=== PATIENT | female | born 1950 | race Hispanic/Latino ===

== ENCOUNTER → 2018-07-03 | Day surgery (SDC) | payer MEDICARE ==
[2018-07-02 09:49] LABS: BASOPHILS # (AUTO) 0.1 (0.0-0.1); BASOPHILS % 0.5 % (0.0-1.0); EOSINOPHILS # (AUTO) 0.5 (0.0-0.4); EOSINOPHILS % 4.6 % (0.0-6.0); HEMATOCRIT 36.2 % (34.2-44.1); HEMOGLOBIN 11.7 g/dL (12.0-16.0); LYMPHOCYTES # (AUTO) 4.8 (1.0-3.2); LYMPHOCYTES % 46.4 % (18.0-39.1); MEAN CORPUSCULAR HEMOGLOBIN 28.7 pg (28-32); MEAN CORPUSCULAR HGB CONC 32.3 g/dL (31-35); MEAN CORPUSCULAR VOLUME 88.7 fL (81-99); MONOCYTES # (AUTO) 0.8 (0.2-0.8); MONOCYTES % 7.3 % (4.4-11.3); NEUTROPHILS # (AUTO) 4.2 (2.1-6.9); NEUTROPHILS % 40.9 % (38.7-80.0); PLATELET COUNT 309 x10e3/uL (140-360); RED BLOOD COUNT 4.08 x10e6/uL (3.6-5.1)
[2018-07-02 10:04] LABS: ANION GAP 16.2 mmol/L (8-16); CALCIUM 10.2 mg/dL (8.4-10.2); CREATININE, SERUM 0.96 mg/dL (0.57-1.11); POTASSIUM 4.2 mmol/L (3.5-5.1)
--- NOTE | 2018-07-02 11:46 | Diagnostic Imaging Report ---
PROCEDURE: X-RAY CHEST, TWO VIEWS COMPARISON: None. INDICATIONS: PREOP BILATERAL CARPAL TUNNEL SX TOMORROW FINDINGS: LUNGS: No consolidations or edema. Vague nodular density overlies the right lower lung field which is likely overlapping shadows but a pulmonary nodule cannot be excluded. PLEURA: No effusions or pneumothorax. HEART \T\ MEDIASTINUM: The heart is within normal size-limits. There is calcification within the aorta. BONES \T\ SOFT TISSUES: No acute findings. Clips in the right upper quadrant from a previous cholecystectomy. CONCLUSION: 1. No acute thoracic abnormality. 2. Vague right lower lobe pulmonary nodular density. Tye Trimble D.O. Dictated by: Tye Trimble D.O. on 07/02/2018 at 10:32 Electronically approved by: Tye Trimble D.O. on 07/02/2018 at 10:32
[~2018-07-03] MED LIST: ACETAMINOPHEN/CODEINE 300MG - 30MG TAB ONE; AMITIZA24 MCG PO; ATORVASTATIN CA20 MG PO; CEFAZOLIN SOD 1 GM VIAL ONE; CLOPIDOGREL75 MG PO; DESFLURANE 240 ML BTL INH ONE; DICYCLOMINE HCL20 MG PO; DIOVAN80 MG PO; FENTANYL CITRATE/PF 100MCG/2 ML INJ ONE; IBUPROFEN200 MG PO; KETOROLAC TROMETHAMINE 30 MG/ML VIAL ONE; LIDOCAINE HCL 2% LOCAL INJ 5 ML SDV VIAL INJ ONE; METFORMIN HCL500 MG PO; METOCLOPRAM5 MG/5 ML; METOPROLOL TART25 MG PO; MIDAZOLAM HCL 2 MG/2 ML VIAL ONE; NITROGLYCERIN0.4 MG SL; ONDANSETRON HCL INJ 2 MG/ML VIAL ONE; OTEZLA; PIOGLITAZONE HC45 MG PO; PROPOFOL IV EMULSION 10 MG/ML 20 ML VIAL ONE; SUCRALFATE1 GM PO
[2018-07-03 08:35] VITALS: BP 118/61
--- NOTE | 2018-07-03 08:58 | Operative Report ---
DATE OF PROCEDURE: July 03, 2018 PIPE BENDING MACHINE OPERATOR: Jeff Bird PA-C The patient was brought to the operating room for induction of anesthesia. Throughout this case, my PA's assistance was necessary for retraction of soft tissue and positioning of the extremity. This allows for efficient and technically successful execution of the operation and is considered medically necessary. PREOPERATIVE DIAGNOSIS: Right carpal tunnel syndrome. POSTOPERATIVE DIAGNOSIS: Right carpal tunnel syndrome. PROCEDURE: Right endoscopic carpal tunnel release. INDICATIONS: The patient is a 68-year-old lady who has clinic signs and symptoms consistent with right carpal tunnel syndrome. She has failed conservative management and would like to proceed with surgical intervention. The risks and benefits have been explained. She states she understands and wishes to proceed. PROCEDURE: The patient was brought to the operating room. She was placed under general anesthetic. Prophylactic antibiotics were given in the holding area. The right upper extremity was prepped and draped in a sterile manner. A well-padded tourniquet was placed on the upper arm and inflated to 250 mmHg. An operative time out was performed. A 1-cm incision was made over the flexion crease of the wrist. The palmaris longus was retracted to the radial side of the wound. The flexor retinaculum was elevated and incised with a pair of sharp tenotomy scissors. An elevator was used to tease the tenosynovium off the undersurface of the transverse carpal ligament. Dilators were placed, and the hook of the hamate was palpated. The MicroAire endoscope was then placed into the carpal tunnel. The undersurface of the ligament was cleanly visualized without evidence of soft tissue interposition. The knife was deployed, and the ligament was cut from distal to proximal. Full-thickness cut was noted. The proximal retinaculum was then incised under direct visualization using a pair of blunt Metzenbaum scissors. The wound was irrigated and closed with 2 interrupted 4-0 nylon stitches. A sterile bandage was applied, and the patient was extubated. The patient was transferred to the recovery room in stable condition. Blood loss was less than 5 mL, and at the end of the procedure needle and sponge counts were correct. Job#: [id number]
== END | disposition home or self-care (01) ==
LOC: OR 05:14
PROVIDERS: ATTEND Specialist
DX: G56.01 Carpal tunnel syndrome, right upper limb (principal); I10 Essential (primary) hypertension; E11.9 Type 2 diabetes mellitus without complications; K21.9 Gastro-esophageal reflux disease without esophagitis; E78.00 Pure hypercholesterolemia, unspecified; Z01.810 Encounter for preprocedural cardiovascular examination; Z01.812 Encounter for preprocedural laboratory examination; Z01.818 Encounter for other preprocedural examination; Z79.02 Long term (current) use of antithrombotics/antiplatelets; Z79.84 Long term (current) use of oral hypoglycemic drugs; Z86.73 Personal history of transient ischemic attack (TIA), and cerebral infarction without residual deficits
CPT/HCPCS: 29848; 36415; 71046; 80048; 85025; 93005; J0690; J1885; J2001; J2250; J2405

== ENCOUNTER → 2018-07-30 | Day surgery (SDC) | payer MEDICARE ==
[~2018-07-30] MED LIST changes: -ACETAMINOPHEN/CODEINE 300MG - 30MG TAB ONE; +ASPIR 8181 MG PO; -DESFLURANE 240 ML BTL INH ONE; +DEXAMETHASONE SOD PHOS INJ 4 MG/ML VIAL ONE; +PHENYLEPHRINE HCL 1% 10 MG/ML VIAL ONE; +SEVOFLURANE INHAL SOLN 250 ML PEN BTL ONE
[2018-07-30 12:40] VITALS: BP 123/58
--- NOTE | 2018-07-31 07:56 | Operative Report ---
DATE OF PROCEDURE: July 30, 2018 [place]ERA SUPERVISOR: Jeff Bird PA-C PREOPERATIVE DIAGNOSIS: Left carpal tunnel syndrome. POSTOPERATIVE DIAGNOSIS: Left carpal tunnel syndrome. PROCEDURE: Left endoscopic carpal tunnel release. INDICATIONS: The patient is a 68-year-old lady, who has clinic signs and symptoms consistent with left carpal tunnel syndrome. She has failed conservative management and would like to proceed with surgical intervention. The risks and benefits of an endoscopic versus open carpal tunnel release have been explained. She states she understands and wishes to proceed. PROCEDURE: The patient was brought to the operating room. was placed under general anesthetic. Prophylactic antibiotics were given in the holding area. The upper extremity was prepped and draped in a sterile manner. A well-padded tourniquet was placed on the upper arm and inflated to 250 mmHg. An operative time out was performed. A 1-cm incision was made over the flexion crease of the wrist. The palmaris longus was retracted to the radial side of the wound. The flexor retinaculum was elevated and incised with a pair of sharp tenotomy scissors. An elevator was used to tease the tenosynovium off the undersurface of the transverse carpal ligament. Dilators were placed, and the hook of the hamate was palpated. The MicroAire endoscope was then placed into the carpal tunnel. The undersurface of the ligament was cleanly visualized without evidence of soft tissue interposition. The knife was deployed, and the ligament was cut from distal to proximal. Full-thickness cut was noted. The proximal retinaculum was then incised under direct visualization using a pair of blunt Metzenbaum scissors. The wound was irrigated and closed with 2 interrupted 4-0 nylon stitches. A sterile bandage was applied, and the patient was extubated. The patient was transferred to the recovery room in stable condition. Blood loss was less than 5 mL, and at the end of the procedure needle and sponge counts were correct. Job#: [id number] [id number]
== END | disposition home or self-care (01) ==
LOC: OR 07:41
PROVIDERS: ATTEND Specialist
DX: G56.02 Carpal tunnel syndrome, left upper limb (principal); E11.9 Type 2 diabetes mellitus without complications; I10 Essential (primary) hypertension; E78.00 Pure hypercholesterolemia, unspecified; Z79.82 Long term (current) use of aspirin; Z79.02 Long term (current) use of antithrombotics/antiplatelets; Z79.84 Long term (current) use of oral hypoglycemic drugs
CPT/HCPCS: 29848; 36415; 82948; J0690; J1100; J1885; J2001; J2250; J2370; J2405

== ENCOUNTER → 2018-08-17 | Outpatient (CLI) | payer MEDICARE ==
[~2018-08-17] MED LIST changes: -CEFAZOLIN SOD 1 GM VIAL ONE; -DEXAMETHASONE SOD PHOS INJ 4 MG/ML VIAL ONE; -FENTANYL CITRATE/PF 100MCG/2 ML INJ ONE; -KETOROLAC TROMETHAMINE 30 MG/ML VIAL ONE; -LIDOCAINE HCL 2% LOCAL INJ 5 ML SDV VIAL INJ ONE; -MIDAZOLAM HCL 2 MG/2 ML VIAL ONE; -ONDANSETRON HCL INJ 2 MG/ML VIAL ONE; -PHENYLEPHRINE HCL 1% 10 MG/ML VIAL ONE; -PROPOFOL IV EMULSION 10 MG/ML 20 ML VIAL ONE; -SEVOFLURANE INHAL SOLN 250 ML PEN BTL ONE
--- NOTE | 2018-08-17 12:20 | Diagnostic Imaging Report ---
Exam: Bone mineral density study (DEXA). History: Osteopenia. Comparison: None Evaluation of the left hip and lumbar spine was performed utilizing DEXA Hologic bone densitometer. The study is technically adequate. FINDINGS: Left hip total bone mineral density: 0.963 gm/cm2, T-score is 0.0, Z-score is 1.2. Left hip femoral neck bone mineral density: 0.808 gm/cm2, T-score is -0.6, Z-score is 1.0. Percentage change since previous: N/A Lumbar spine total bone mineral density: 1.022 gm/cm2, T-score is -0.2, Z-score is 1.6. Percentage change since previous: N/A IMPRESSION: 1. Normal bone mineral density. Fracture risk is not increased. 10 -year fracture risk per WHO Fracture Risk Assessment Tool (FRAX): Not reported due to all T-scores at or above -1.0. Medical evaluation for secondary causes of low bone bone mineral density may be appropriate. Correlate clinically for the necessity and timing of the next bone mineral density study. Signed by: Dr. Hal Upton MD on 08/17/2018 12:16 PM
== END ==
LOC: MAMMO 09:04
PROVIDERS: ATTEND Obstetrics & Gynecology Obstetrics
DX: Z12.31 Encounter for screening mammogram for malignant neoplasm of breast (principal); Z13.820 Encounter for screening for osteoporosis
CPT/HCPCS: 77067; 77080

== ENCOUNTER → 2018-11-27 | Day surgery (SDC) | payer MEDICARE ==
[2018-11-26 10:07] LABS: BASOPHILS # (AUTO) 0.1 (0.0-0.1); BASOPHILS % 0.5 % (0.0-1.0); EOSINOPHILS # (AUTO) 0.4 (0.0-0.4); EOSINOPHILS % 3.9 % (0.0-6.0); HEMATOCRIT 34.9 % (34.2-44.1); LYMPHOCYTES # (AUTO) 4.9 (1.0-3.2); LYMPHOCYTES % 49.2 % (18.0-39.1); MEAN CORPUSCULAR HEMOGLOBIN 28.5 pg (28-32); MEAN CORPUSCULAR HGB CONC 31.5 g/dL (31-35); MEAN CORPUSCULAR VOLUME 90.4 fL (81-99); MONOCYTES # (AUTO) 0.8 (0.2-0.8); MONOCYTES % 7.9 % (4.4-11.3); NEUTROPHILS # (AUTO) 3.8 (2.1-6.9); NEUTROPHILS % 38.1 % (38.7-80.0); PLATELET COUNT 307 x10e3/uL (140-360); RED BLOOD COUNT 3.86 x10e6/uL (3.6-5.1); RED CELL DISTRIBUTION WIDTH 13.2 % (11.7-14.4)
[2018-11-26 10:24] LABS: ANION GAP 13.1 mmol/L (8-16); CALCIUM 9.6 mg/dL (8.4-10.2); CREATININE, SERUM 0.96 mg/dL (0.57-1.11); POTASSIUM 4.1 mmol/L (3.5-5.1)
--- NOTE | 2018-11-26 11:17 | Diagnostic Imaging Report ---
Frontal and lateral views of the chest. HISTORY: Preop, shoulder surgery, rotator cuff tear COMPARISON: None available. DISCUSSION: Soft tissue attenuation partially limits sensitivity of the exam. Lungs: Low lung volumes result in bibasilar vascular crowding, accentuation of the pulmonary interstitial markings, central pulmonary vasculature, and the cardiac silhouette. Allowing for these limitations, the findings are as follows: Questionable 9 mm right lower lung nodular density. No evidence of a consolidative pneumonia or pulmonary alveolar edema. Pleura: No pleural effusion or pneumothorax. Heart and mediastinum: The cardiomediastinal silhouette appears unremarkable. Atherosclerotic vascular calcifications at the aortic arch. Bones: Mild to moderate multilevel degenerative changes of the visualized thoracolumbar spine. Other: Metallic clips in the right upper quadrant of the abdomen are compatible with prior cholecystectomy. IMPRESSION: 1. No acute radiographic abnormality. 2. Questionable 9 mm right pulmonary nodule, differential considerations include a pulmonary nodule, bone island within the right fifth rib, and a pseudonodule secondary to superimposed densities. Recommend a follow-up CT of the chest without contrast for further evaluation. Discussed with Cindy Nance's M.A. (Dr. Nance was in surgery) via phone on November 26, 2017 at 1110, who states she well relate the findings and recommendation to Dr. Nance. Signed by: Dr. Сергей Mccoy D.O., M.M.M. on 11/26/2018 11:14 AM
[~2018-11-27] MED LIST changes: +BUPIVACAINE HCL 0.5% INJ 30 ML VIAL INJ ONE; +CEFAZOLIN SOD 1 GM/D5W 50ML 50 ML IV ONE; +DEPO-MEDRO80 MG/1 ML IV; +DEXAMETHASONE SOD PHOS INJ 4 MG/ML VIAL ONE; +DEXILANT60 MG; +EPINEPHRINE HCL INJ 1 MG/ML AMP ONE; +FENTANYL CITRATE/PF 100MCG/2 ML INJ ONE; +GLYCOPYRROLATE INJ 1MG/ 5 ML SYR ONE; +ISONIAZID300 MG PO; +KETOROLAC TROMETHAMINE 30 MG/ML VIAL ONE; +LIDOCAINE HCL 2% LOCAL INJ 5 ML SDV VIAL INJ ONE; +MIDAZOLAM HCL 2 MG/2 ML VIAL ONE; +NEOSTIGMINE 5 MG/5ML SYR ONE; +ONDANSETRON HCL INJ 2 MG/ML VIAL ONE; +PROPOFOL IV EMULSION 10 MG/ML 20 ML VIAL ONE; +RISPERIDONE0.5 MG PO; +ROCURONIUM BROMIDE 10 MG/ML 5ML VIAL ONE; +SEVOFLURANE INHAL SOLN 250 ML PEN BTL ONE; +VITAMIN B-650 MG
[2018-11-27 12:30] VITALS: BP 146/70
--- NOTE | 2018-11-27 16:28 | Operative Report ---
DATE OF PROCEDURE: November 27, 2018 TOPLINE BEADING MACHINE TENDER: Jeff Bird PA-C The patient was brought to the operating room for induction of anesthesia. Throughout this case, my PA's assistance was necessary for retraction of soft tissue and positioning of the extremity. This allows for efficient and technically successful execution of the operation and is considered medically necessary. PREOPERATIVE DIAGNOSIS: Left shoulder rotator cuff tear. POSTOPERATIVE DIAGNOSIS: Left shoulder rotator cuff tear. PROCEDURE: Left shoulder arthroscopy, subacromial decompression, rotator cuff repair. INDICATIONS: The patient is a 68-year-old lady who has a long history of problems in her left shoulder. She is no longer responding to conservative management and would like to proceed with definitive intervention. Clinic exam and MRI findings are consistent with a rotator cuff tear. The risks and benefits and lengthy recovery of a rotator cuff repair have been explained. She states she understands and wishes to proceed. DESCRIPTION OF PROCEDURE: The patient was brought to the operating room and placed under general anesthetic. She received a regional block and prophylactic antibiotics in the holding area. Her left upper extremity was prepped and draped in a sterile manner. She was in the beach-chair position on the shoulder table. A preoperative time out was performed. A posterior arthroscopy portal was established. The shoulder was insufflated with sterile saline and systematically inspected. She was noted to have some degenerative fraying of the labrum. There was a full-thickness rotator cuff tear with calcific degeneration of the tendon. A lateral working portal was established. An Electroblade shaver was introduced into the shoulder joint. The articular surface of the rotator cuff was debrided back to healthy tissue. The degenerative fraying of the labrum was debrided back to healthy tissue. The biceps anchor and biceps tendon were in good shape. The subscapularis was in good shape. The greater tuberosity was gently decorticated. The glenohumeral surfaces were inspected and noted to be well preserved. The scope was placed into the subacromial space. An aggressive subacromial bursectomy and bone decompression were performed. The bursal surface of the rotator cuff was debrided back to healthy tissue. An Arthrex SpeedBridge double row construct of rotator cuff repair system was used. Initial police pilot hole was initially placed in the greater tuberosity correlating with the anterior supraspinatus. An Arthrex Scorpion suture passer was used to pass the FiberTape stitches through healthy portions of the rotator cuff. A police pilot hole was then placed into the posterior aspect of the greater tuberosity. This bone was suboptimal quality. The suture anchor was seated but could easily be pulled out. I elected to use the anterior suture anchor alone with diverging FiberTape stitches. These were passed... DICTATION STOPPED AT THIS POINT. Job#: [id number]
== END | disposition home or self-care (01) ==
LOC: OR 06:40
PROVIDERS: ATTEND Specialist
DX: S46.022A Laceration of muscle(s) and tendon(s) of the rotator cuff of left shoulder, initial encounter (principal); M75.32 Calcific tendinitis of left shoulder; M75.02 Adhesive capsulitis of left shoulder; E11.9 Type 2 diabetes mellitus without complications; E78.00 Pure hypercholesterolemia, unspecified; I10 Essential (primary) hypertension; X58.XXXA Exposure to other specified factors, initial encounter; Z01.810 Encounter for preprocedural cardiovascular examination; Z01.812 Encounter for preprocedural laboratory examination; Z01.818 Encounter for other preprocedural examination; Z79.02 Long term (current) use of antithrombotics/antiplatelets; Z79.84 Long term (current) use of oral hypoglycemic drugs; Z79.82 Long term (current) use of aspirin; Z86.73 Personal history of transient ischemic attack (TIA), and cerebral infarction without residual deficits
CPT/HCPCS: 29827; 36415 ×2; 71046; 80048; 82948; 85002; 85025; 93005; C1713; J0171; J0690; J1100; J1885; J2001; J2250; J2405; J2704; J3490

== ENCOUNTER 2019-05-31 17:49 | Emergency (ER) | payer MEDICARE ==
[~2019-05-31] VITALS: Ht 162.6 cm; Wt 63.5 kg
[~2019-05-31 17:49] MED LIST changes: -BUPIVACAINE HCL 0.5% INJ 30 ML VIAL INJ ONE; -CEFAZOLIN SOD 1 GM/D5W 50ML 50 ML IV ONE; -DEXAMETHASONE SOD PHOS INJ 4 MG/ML VIAL ONE; -EPINEPHRINE HCL INJ 1 MG/ML AMP ONE; -FENTANYL CITRATE/PF 100MCG/2 ML INJ ONE; -GLYCOPYRROLATE INJ 1MG/ 5 ML SYR ONE; -KETOROLAC TROMETHAMINE 30 MG/ML VIAL ONE; -LIDOCAINE HCL 2% LOCAL INJ 5 ML SDV VIAL INJ ONE; -MIDAZOLAM HCL 2 MG/2 ML VIAL ONE; -NEOSTIGMINE 5 MG/5ML SYR ONE; -ONDANSETRON HCL INJ 2 MG/ML VIAL ONE; -PROPOFOL IV EMULSION 10 MG/ML 20 ML VIAL ONE; -ROCURONIUM BROMIDE 10 MG/ML 5ML VIAL ONE; -SEVOFLURANE INHAL SOLN 250 ML PEN BTL ONE
[2019-05-31 19:27] LABS: BILIRUBIN,URINE NEGATIVE (NEGATIVE); CLARITY,URINE SL CLOUDY (CLEAR); COLOR,URINE YELLOW (YELLOW); KETONES,URINE NEGATIVE (NEGATIVE); LEUKOCYTE ESTERASE ,URINE TRACE (NEGATIVE); NITRITE,URINE NEGATIVE (NEGATIVE); PROTEIN,URINE DIPSTICK 1+ (NEGATIVE); URINE UROBILINOGEN 0.2 mg/dL (0.2 - 1)
[2019-05-31 19:43] LABS: BACTERIA,URINE MODERATE /HPF; EPITHELIAL CELLS,URINE FEW /LPF; HYALINE CASTS 0-1 (0-1); RBC,URINE 0-5 /HPF (0-5)
[2019-05-31] MEDS: LIDOCAINE VISC 2% SOLN 15 ML UDC PO NR (20:27)
[2019-05-31] MEDS: ONDANSETRON HCL INJ 2MG/ML 2ML 2 MG/ML VIAL IV NR (20:27)
[2019-05-31] MEDS: MAGNESIUM/ALUMINUM/SIMETHICONE 30 ML UDC PO NR (20:27)
[2019-05-31] MEDS: BELLADONNA ALK/PHENOBARBITAL 5 ML UDC PO SCH (20:27)
[2019-05-31 21:12] LABS: ALBUMIN 3.7 g/dL (3.5-5.0); ANION GAP 15.8 mmol/L (8-16); CALCIUM 9.9 mg/dL (8.4-10.2); CREATININE, SERUM 0.93 mg/dL (0.57-1.11); POTASSIUM 3.8 mmol/L (3.5-5.1)
[2019-05-31 21:18] LABS: CREATINE KINASE MB 0.5 ng/mL (0-5.0)
[2019-05-31 21:27] LABS: BASOPHILS # (AUTO) 0.1 (0.0-0.1); BASOPHILS % 0.6 % (0.0-1.0); EOSINOPHILS # (AUTO) 0.1 (0.0-0.4); EOSINOPHILS % 1.5 % (0.0-6.0); HEMATOCRIT 31.6 % (34.2-44.1); HEMOGLOBIN 10.5 g/dL (12.0-16.0); LYMPHOCYTES # (AUTO) 2.5 (1.0-3.2); LYMPHOCYTES % 26.2 % (18.0-39.1); MEAN CORPUSCULAR HEMOGLOBIN 28.3 pg (28-32); MEAN CORPUSCULAR HGB CONC 33.2 g/dL (31-35); MEAN CORPUSCULAR VOLUME 85.2 fL (81-99); MONOCYTES # (AUTO) 0.7 (0.2-0.8); MONOCYTES % 7.4 % (4.4-11.3); NEUTROPHILS # (AUTO) 6.2 (2.1-6.9); NEUTROPHILS % 63.9 % (38.7-80.0); PLATELET COUNT 359 x10e3/uL (140-360); RED BLOOD COUNT 3.71 x10e6/uL (3.6-5.1); RED CELL DISTRIBUTION WIDTH 14.3 % (11.7-14.4)
[2019-05-31 21:38] LABS: INR 1.07; PROTHROMBIN TIME 14.4 seconds (11.9-14.5)
[2019-05-31 21:39] LABS: PARTIAL THROMBOPLASTIN TIME 34.6 seconds (23.8-35.5)
[2019-05-31] MEDS ORDERED: SODIUM CHLORIDE 0.9% 50ML 50 ML ONE (22:16)
[2019-05-31] MEDS ORDERED: IOPAMIDOL 370 MG/ML 200 ML INFUS..BTL INJ ONE (22:17)
--- NOTE | 2019-05-31 22:33 | Diagnostic Imaging Report ---
EXAM: CT of the abdomen and pelvis WITH contrast HISTORY: Epigastric pain, nausea and vomiting, history of cholecystectomy COMPARISON: None available. TECHNIQUE: The abdomen and pelvis were scanned utilizing a multidetector helical scanner. Coronal and sagittal reformats are provided. PROTOCOL: Routine IV CONTRAST: 100 cc of Isovue-370. ORAL CONTRAST: Water RADIATION DOSE: Total DLP: 299.25 mGy*cm Estimated effective dose: (DLP x 0.015 x size factor) Dose modulation, iterative reconstruction, and/or weight based adjustment of the mA/kV was utilized to reduce the radiation dose to as low as reasonably achievable. COMPLICATIONS: None FINDINGS: LOWER THORAX: Seen only on the axial images, a 1.2 x 0.7 cm right middle lobe nodule (series 2 image 3). HEPATOBILIARY: No mass. No biliary dilation. Metallic clips in the right upper quadrant of the abdomen are compatible with prior cholecystectomy. SPLEEN: No splenomegaly. PANCREAS: No focal masses or ductal dilatation. ADRENALS: No discrete adrenal nodule. KIDNEYS/URETERS: No hydronephrosis or definite solid mass lesions. Three nonobstructing left renal calculi, the largest near the inferior pole measures up to 6 mm. PELVIC ORGANS/BLADDER: The uterus is anteflexed. The urinary bladder is partially decompressed. GI TRACT: No dilation or wall thickening identified. Scattered colonic diverticuli, without evidence of acute diverticulitis. The appendix is normal. PERITONEUM / RETROPERITONEUM: No free air or fluid. LYMPH NODES: No pathologically enlarged lymph node. VESSELS: Diffuse scattered atherosclerotic vascular calcifications. BONES and JOINTS: Diffusely decreased mineralization of the osseous structures limits bone detail. A 1.2 cm mixed lucent and sclerotic focus within the L5 vertebral body with coarse trabeculations and intrinsic fat density, most likely an incidental vertebral body hemangioma. SOFT TISSUES: Small fat-containing umbilical hernia, without associated inflammatory changes to suggest definite compromise. Diffuse muscle atrophy. IMPRESSION: 1. Three nonobstructing left renal calculi, measuring up to 6 mm. 2. An indeterminant 1.2 cm right lung base nodule. Recommend a follow-up CT of the chest without contrast in 3 months for surveillance or PET/CT for more definitive characterization. 3. Colonic diverticulosis. 4. Small fat-containing umbilical hernia, without evidence of associated vascular compromise. Signed by: Dr. Сергей Mccoy D.O., M.M.M. on 05/31/2019 10:29 PM
[2019-05-31 23:42] VITALS: BP 145/75
== END 2019-06-01 01:10 | disposition home or self-care (01) ==
LOC: ER 17:49
DX: N39.0 Urinary tract infection, site not specified (principal); R10.13 Epigastric pain; E11.9 Type 2 diabetes mellitus without complications; Z87.891 Personal history of nicotine dependence; Z79.84 Long term (current) use of oral hypoglycemic drugs; Z79.02 Long term (current) use of antithrombotics/antiplatelets; Z79.82 Long term (current) use of aspirin
CPT/HCPCS: 36415; 74177; 80053; 81001; 82550; 82553; 83605; 83690; 84484; 85025; 85610; 85730; 87086; 93005; 99284; J2405; Q9967

== ENCOUNTER 2019-06-05 11:58 | Emergency (ER) | payer MEDICARE ==
[~2019-06-05] VITALS: Ht 162.6 cm; Wt 63.5 kg
[2019-06-05] MEDS ORDERED: ONDANSETRON HCL 4 MG ORAL DISINTEGRATING TAB PO ONE (13:00)
[2019-06-05] MEDS ORDERED: ONDANSETRON HCL 4 MG ORAL DISINTEGRATING TAB ONE (13:03)
== END 2019-06-05 12:57 | disposition home or self-care (01) ==
LOC: ER 11:58
DX: Z76.0 Encounter for issue of repeat prescription (principal); R10.13 Epigastric pain
CPT/HCPCS: 99282; Q0162

== ENCOUNTER → 2019-09-10 | Outpatient (CLI) | payer MEDICARE | LOC: MAMMO 10:43 | PROVIDERS: ATTEND Obstetrics & Gynecology Obstetrics | DX: Z12.31 Encounter for screening mammogram for malignant neoplasm of breast (principal) | CPT/HCPCS: 77067 ==

== ENCOUNTER → 2019-09-20 | Outpatient (CLI) | payer MEDICARE | LOC: MAMMO 10:24 | PROVIDERS: ATTEND Obstetrics & Gynecology Obstetrics | DX: N64.89 Other specified disorders of breast (principal) ==

== ENCOUNTER 2021-02-22 12:34 | Observation (INO) | payer MEDICARE ==
[~2021-02-22] VITALS: Ht 162.6 cm; Wt 63.5 kg
[2021-02-22] MEDS ORDERED: ONDANSETRON HCL INJ 2MG/ML 2ML 2 MG/ML VIAL IV STA (12:59)
[2021-02-22] MEDS ORDERED: SODIUM CHLORIDE 0.9% 1000ML 1,000 ML IV STA ×2 (12:59→19:18)
[2021-02-22] MEDS ORDERED: MORPHINE SULFATE INJ 2 MG/ML SYR IV STA (12:59)
[2021-02-22] MEDS ORDERED: PANTOPRAZOLE 40 MG 10ML VIAL IV STA ×2 (12:59→19:22)
[2021-02-22 13:38] LABS: BASOPHILS # (AUTO) 0.1 (0.0-0.1); BASOPHILS % 0.7 % (0.0-1.0); EOSINOPHILS # (AUTO) 0.3 (0.0-0.4); EOSINOPHILS % 2.8 % (0.0-6.0); HEMATOCRIT 37.3 % (34.2-44.1); LYMPHOCYTES # (AUTO) 2.9 (1.0-3.2); LYMPHOCYTES % 31.8 % (18.0-39.1); MEAN CORPUSCULAR HEMOGLOBIN 30.1 pg (28-32); MEAN CORPUSCULAR HGB CONC 32.2 g/dL (31-35); MEAN CORPUSCULAR VOLUME 93.5 fL (81-99); MONOCYTES # (AUTO) 0.8 (0.2-0.8); MONOCYTES % 8.4 % (4.4-11.3); NEUTROPHILS # (AUTO) 5.1 (2.1-6.9); PLATELET COUNT 300 x10e3/uL (140-360); RED BLOOD COUNT 3.99 x10e6/uL (3.6-5.1); RED CELL DISTRIBUTION WIDTH 13.5 % (11.7-14.4)
[2021-02-22 14:19] LABS: ALBUMIN/GLOBULIN RATIO 0.9 (0.8-2.0); ANION GAP 16.7 mmol/L (8-16); CALCIUM 10.1 mg/dL (8.4-10.2); CREATININE, SERUM 1.09 mg/dL (0.57-1.11); INR 0.87; MAGNESIUM 1.7 MG/DL (1.3-2.1); PROTHROMBIN TIME 12.4 seconds (11.9-14.5)
[2021-02-22 14:20] LABS: CLARITY,URINE SL CLOUDY (CLEAR); COLOR,URINE YELLOW (YELLOW); KETONES,URINE NEGATIVE (NEGATIVE); LEUKOCYTE ESTERASE ,URINE SMALL (NEGATIVE); NITRITE,URINE NEGATIVE (NEGATIVE); PROTEIN,URINE DIPSTICK TRACE (NEGATIVE); URINE UROBILINOGEN 0.2 mg/dL (0.2 - 1)
[2021-02-22 14:22] LABS: POTASSIUM 5.7 mmol/L (3.5-5.1)
[2021-02-22 14:27] LABS: BACTERIA,URINE MANY /HPF
[2021-02-22] MEDS ORDERED: SODIUM CHLORIDE 0.9% 50ML 50 ML ONE (15:24)
[2021-02-22] MEDS ORDERED: IOPAMIDOL 370 MG/ML 200 ML INFUS..BTL INJ ONE (15:25)
[2021-02-22 16:58] LABS: ANION GAP 14.4 mmol/L (8-16); BLOOD UREA NITROGEN 19 mg/dL (7-26); BUN/CREATININE RATIO 21 (6-25); CALCIUM 9.1 mg/dL (8.4-10.2); CARBON DIOXIDE 19 mmol/L (22-29); CHLORIDE 108 mmol/L (98-107); CREATININE, SERUM 0.92 mg/dL (0.57-1.11); EST GLOMERULAR FILTRATION RATE > 60 ML/MIN (60-); GLUCOSE 90 mg/dL (74-118); SODIUM 135 mmol/L (136-145)
[2021-02-22 17:00] LABS: POTASSIUM 6.4 mmol/L (3.5-5.1)
[2021-02-22 18:46] LABS: ANION GAP 13.5 mmol/L (8-16); CALCIUM 9.5 mg/dL (8.4-10.2); CREATININE, SERUM 0.97 mg/dL (0.57-1.11)
[2021-02-22 18:47] LABS: POTASSIUM 6.5 mmol/L (3.5-5.1)
[2021-02-22] MEDS ORDERED: DEXTROSE 50% SYRINGE 50 ML IV STA (18:57)
[2021-02-22] MEDS ORDERED: SODIUM BICARBONATE 8.4% INJ 50 ML SYR IV STA (18:57)
[2021-02-22] MEDS ORDERED: SOD POLYSTYRENE SULFONATE SUSP 15 GM/60 ML BTL PO ONE (19:00)
[2021-02-22] MEDS ORDERED: INSULIN REGULAR, HUMAN 100 UNIT/1 ML 3ML VIAL IV ONE (19:00)
[2021-02-22] MEDS: PIPERACILLIN/TAZOBAC 3.375 GM in SODIUM CHLORIDE 0.9% 50ML 50 ML IV SCH (19:24)
[2021-02-22] MEDS ORDERED: ONDANSETRON HCL INJ 2MG/ML 2ML 2 MG/ML VIAL IV PRN (19:30)
[2021-02-22] MEDS ORDERED: FUROSEMIDE INJ 10 MG/ML 2 ML VIAL IV ONE (19:30)
[2021-02-22] MEDS ORDERED: DICYCLOMINE HCL 20 MG TAB PO PRN (19:30)
[2021-02-22] MEDS ORDERED: FUROSEMIDE INJ 10 MG/ML 2 ML VIAL ONE (19:38)
[2021-02-22] MEDS: SODIUM CHLORIDE 0.9% 1000ML 1,000 ML IV SCH (20:51)
[2021-02-22 21:00] VITALS: BP 107/58
[2021-02-22 21:05] VITALS: BP 107/58
[2021-02-23] VITALS (7 sets, daily range): BP systolic 113–129; BP diastolic 55–60
[2021-02-23] MEDS ORDERED: PREGABALIN PO (00:13)
[2021-02-23] MEDS ORDERED: METOCLOPRAM5 MG/5 ML PO (00:13)
[2021-02-23] MEDS ORDERED: LANSOPRAZOLE30 MG PO (00:13)
[2021-02-23] MEDS ORDERED: TRAZADONE PO (00:13)
[2021-02-23] MEDS ORDERED: DICLOFENAC PO (00:13)
[2021-02-23] MEDS ORDERED: OLMESARTAN PO (00:13)
[2021-02-23] MEDS ORDERED: [UNRECOGNIZED DRUG - OTHER] PO (00:13)
[2021-02-23] MEDS ORDERED: FERROUS SULFAT325 MG PO (00:13)
[2021-02-23] MEDS: PIPERACILLIN/TAZOBAC 3.375 GM in SODIUM CHLORIDE 0.9% 50ML 50 ML IV SCH ×4 (00:45→17:07)
[2021-02-23] MEDS ORDERED: PIPERACILLIN/TAZOBAC 3.375 GM VIAL ONE ×3 (01:10→17:03)
[2021-02-23] MEDS ORDERED: SODIUM CHLORIDE 0.9% 50ML 50 ML ONE ×3 (01:10→17:03)
[2021-02-23] MEDS: SODIUM CHLORIDE 0.9% 1000ML 1,000 ML IV SCH ×3 (04:44→19:30)
[2021-02-23 05:56] LABS: BASOPHILS # (AUTO) 0.1 (0.0-0.1); BASOPHILS % 0.9 % (0.0-1.0); EOSINOPHILS # (AUTO) 0.3 (0.0-0.4); EOSINOPHILS % 4.1 % (0.0-6.0); HEMATOCRIT 31.1 % (34.2-44.1); HEMOGLOBIN 9.9 g/dL (12.0-16.0); LYMPHOCYTES % 40.2 % (18.0-39.1); MEAN CORPUSCULAR HEMOGLOBIN 29.9 pg (28-32); MEAN CORPUSCULAR HGB CONC 31.8 g/dL (31-35); MONOCYTES # (AUTO) 0.8 (0.2-0.8); MONOCYTES % 10.1 % (4.4-11.3); NEUTROPHILS # (AUTO) 3.3 (2.1-6.9); NEUTROPHILS % 44.3 % (38.7-80.0); PLATELET COUNT 242 x10e3/uL (140-360); RED BLOOD COUNT 3.31 x10e6/uL (3.6-5.1); RED CELL DISTRIBUTION WIDTH 13.8 % (11.7-14.4)
[2021-02-23 06:18] LABS: ALBUMIN 3.4 g/dL (3.5-5.0); ANION GAP 13.6 mmol/L (8-16); CALCIUM 8.7 mg/dL (8.4-10.2); CREATININE, SERUM 1.06 mg/dL (0.57-1.11); POTASSIUM 4.6 mmol/L (3.5-5.1)
[2021-02-23 06:53] LABS: CHOL/HDL RATIO 2.7 (3.0-3.6)
[2021-02-23] MEDS: PANTOPRAZOLE 40 MG 10ML VIAL IV SCH ×2 (09:00→16:59)
[2021-02-23] MEDS: METOPROLOL TARTRATE 25 MG TAB PO SCH ×2 (09:00→22:10)
[2021-02-23] MEDS ORDERED: ATORVASTATIN 40 MG TAB PO SCH (21:00)
[2021-02-24] VITALS: BP 143/93
[2021-02-24] MEDS ORDERED: PIPERACILLIN/TAZOBAC 3.375 GM VIAL ONE ×2 (00:24→04:42)
[2021-02-24] MEDS ORDERED: SODIUM CHLORIDE 0.9% 50ML 50 ML ONE ×2 (00:25→04:42)
[2021-02-24] MEDS: PIPERACILLIN/TAZOBAC 3.375 GM in SODIUM CHLORIDE 0.9% 50ML 50 ML IV SCH ×2 (00:50→06:12)
[2021-02-24] MEDS: SODIUM CHLORIDE 0.9% 1000ML 1,000 ML IV SCH (03:30)
[2021-02-24 04:00] VITALS: BP 130/74
[2021-02-24 05:28] LABS: BASOPHILS # (AUTO) 0.1 (0.0-0.1); EOSINOPHILS # (AUTO) 0.3 (0.0-0.4); HEMATOCRIT 31.8 % (34.2-44.1); HEMOGLOBIN 10.6 g/dL (12.0-16.0); LYMPHOCYTES % 42.9 % (18.0-39.1); MEAN CORPUSCULAR HEMOGLOBIN 30.7 pg (28-32); MEAN CORPUSCULAR HGB CONC 33.3 g/dL (31-35); MEAN CORPUSCULAR VOLUME 92.2 fL (81-99); MONOCYTES # (AUTO) 0.7 (0.2-0.8); MONOCYTES % 9.6 % (4.4-11.3); NEUTROPHILS % 42.2 % (38.7-80.0); PLATELET COUNT 242 x10e3/uL (140-360); RED BLOOD COUNT 3.45 x10e6/uL (3.6-5.1); RED CELL DISTRIBUTION WIDTH 13.4 % (11.7-14.4)
[2021-02-24 05:52] LABS: ALANINE AMINOTRANSFERASE 20 IU/L (0-55); ALBUMIN 3.3 g/dL (3.5-5.0); ALKALINE PHOSPHATASE 47 IU/L (40-150); ANION GAP 12.8 mmol/L (8-16); BLOOD UREA NITROGEN 9 mg/dL (7-26); BUN/CREATININE RATIO 10 (6-25); CALCIUM 8.5 mg/dL (8.4-10.2); CARBON DIOXIDE 22 mmol/L (22-29); CHLORIDE 108 mmol/L (98-107); CREATININE, SERUM 0.88 mg/dL (0.57-1.11); EST GLOMERULAR FILTRATION RATE > 60 ML/MIN (60-); GLUCOSE 154 mg/dL (74-118); POTASSIUM 3.8 mmol/L (3.5-5.1); SODIUM 139 mmol/L (136-145)
[2021-02-24] MEDS ORDERED: KEFLEX125 MG/5 M PO (07:45)
[2021-02-24 07:55] VITALS: BP 128/65
[2021-02-24 08:04] VITALS: BP 128/65
[2021-02-24] MEDS: METOPROLOL TARTRATE 25 MG TAB PO SCH (08:11)
[2021-02-24] MEDS: PANTOPRAZOLE 40 MG 10ML VIAL IV SCH (08:12)
== END 2021-02-24 10:43 | disposition home or self-care (01) ==
LOC: ER 12:59 → ERHOLD 20:20 → MED/SURG 22:46
PROVIDERS: ADMIT Internal Medicine; ATTEND Internal Medicine
DX: K52.9 Noninfective gastroenteritis and colitis, unspecified (principal); E87.5 Hyperkalemia; I10 Essential (primary) hypertension; E11.9 Type 2 diabetes mellitus without complications; E78.5 Hyperlipidemia, unspecified; Z90.49 Acquired absence of other specified parts of digestive tract; Z20.822 Contact with and (suspected) exposure to COVID-19; N17.9 Acute kidney failure, unspecified; N39.0 Urinary tract infection, site not specified; K57.30 Diverticulosis of large intestine without perforation or abscess without bleeding; B96.1 Klebsiella pneumoniae [K. pneumoniae] as the cause of diseases classified elsewhere
CPT/HCPCS: 36415 ×3; 71045; 74177; 80048; 80053 ×3; 80061; 81001; 82150; 82550; 82553; 82948 ×3; 83036; 83690; 83735; 84484; 85025 ×3; 85610; 85730; 87086; 87186; 93005; 99284; C9113 ×3; G0378 ×3; J1817; J1940; J2270; J2405; J2543 ×3; J7030 ×2; J7799; Q9967; U0002

== ENCOUNTER 2021-04-09 11:43 | Emergency (ER) | payer MEDICARE ==
[~2021-04-09] VITALS: Ht 315 cm; Wt 63.5 kg
[~2021-04-09 11:43] MED LIST changes: +DICLOFENAC PO; +FERROUS SULFAT325 MG PO; +KEFLEX125 MG/5 M PO; +LANSOPRAZOLE30 MG PO; +METOCLOPRAM5 MG/5 ML PO; +OLMESARTAN PO; +PREGABALIN PO; +TRAZADONE PO; +[UNRECOGNIZED DRUG - OTHER] PO
[2021-04-09] MEDS ORDERED: SODIUM CHLORIDE 0.9% 1000ML 1,000 ML IV STA (12:02)
[2021-04-09 12:14] LABS: BASOPHILS # (AUTO) 0.1 (0.0-0.1); BASOPHILS % 0.9 % (0.0-1.0); EOSINOPHILS # (AUTO) 0.4 (0.0-0.4); EOSINOPHILS % 3.6 % (0.0-6.0); HEMATOCRIT 35.2 % (34.2-44.1); HEMOGLOBIN 11.4 g/dL (12.0-16.0); LYMPHOCYTES # (AUTO) 2.6 (1.0-3.2); LYMPHOCYTES % 26.5 % (18.0-39.1); MEAN CORPUSCULAR HEMOGLOBIN 31.3 pg (28-32); MEAN CORPUSCULAR HGB CONC 32.4 g/dL (31-35); MEAN CORPUSCULAR VOLUME 96.7 fL (81-99); MONOCYTES # (AUTO) 0.8 (0.2-0.8); MONOCYTES % 8.5 % (4.4-11.3); NEUTROPHILS # (AUTO) 5.9 (2.1-6.9); NEUTROPHILS % 59.8 % (38.7-80.0); PLATELET COUNT 272 x10e3/uL (140-360); RED BLOOD COUNT 3.64 x10e6/uL (3.6-5.1); RED CELL DISTRIBUTION WIDTH 13.5 % (11.7-14.4)
[2021-04-09 12:27] LABS: INR 0.92
[2021-04-09 12:28] LABS: PARTIAL THROMBOPLASTIN TIME 35.7 seconds (23.8-35.5)
[2021-04-09 12:35] LABS: ALBUMIN 3.9 g/dL (3.5-5.0); ANION GAP 16.5 mmol/L (8-16); CALCIUM 9.8 mg/dL (8.4-10.2); CREATININE, SERUM 0.99 mg/dL (0.57-1.11); MAGNESIUM 1.4 MG/DL (1.3-2.1)
[2021-04-09 12:36] LABS: CLARITY,URINE TURBID (CLEAR); COLOR,URINE YELLOW (YELLOW); KETONES,URINE NEGATIVE (NEGATIVE); LEUKOCYTE ESTERASE ,URINE MODERATE (NEGATIVE); NITRITE,URINE POSITIVE (NEGATIVE); PROTEIN,URINE DIPSTICK NEGATIVE (NEGATIVE); URINE UROBILINOGEN 0.2 mg/dL (0.2 - 1)
[2021-04-09 12:37] LABS: BACTERIA,URINE MANY /HPF; EPITHELIAL CELLS,URINE FEW /LPF; WBC,URINE (MAN) >50 /HPF (0-5)
[2021-04-09 12:41] LABS: CREATINE KINASE MB 1.2 ng/mL (0-5.0)
[2021-04-09 12:42] LABS: POTASSIUM 5.5 mmol/L (3.5-5.1)
[2021-04-09] MEDS ORDERED: CEFTRIAXONE SOD 1 GM VIAL IV ONE (13:45)
[2021-04-09] MEDS ORDERED: SOD POLYSTYRENE SULFONATE SUSP 15 GM/60 ML BTL PO ONE (13:45)
[2021-04-09] MEDS ORDERED: CEFTRIAXONE SOD 1 GM in SODIUM CHLORIDE 0.9% 50ML 50 ML IV ONE (14:00)
[2021-04-09 14:19] VITALS: BP 115/59
== END 2021-04-09 14:41 | disposition home or self-care (01) ==
LOC: ER 11:56
DX: E87.5 Hyperkalemia (principal); N39.0 Urinary tract infection, site not specified; I10 Essential (primary) hypertension; E11.9 Type 2 diabetes mellitus without complications; E78.5 Hyperlipidemia, unspecified; Z87.440 Personal history of urinary (tract) infections
CPT/HCPCS: 36415; 70450; 71045; 80053; 81001; 82550; 82553; 83735; 83880; 84484; 85025; 85610; 85730; 87086; 87186; 93005; 99284; J0696; J7030

== ENCOUNTER 2021-04-20 21:23 | Emergency (ER) | payer MEDICARE ==
[~2021-04-20] VITALS: Ht 315 cm; Wt 63.5 kg
[2021-04-20 22:42] LABS: ANION GAP 16.7 mmol/L (8-16); CALCIUM 9.2 mg/dL (8.4-10.2); CREATININE, SERUM 1.63 mg/dL (0.57-1.11); POTASSIUM 4.7 mmol/L (3.5-5.1)
== END 2021-04-20 23:00 | disposition home or self-care (01) ==
LOC: ER 22:28
DX: E87.5 Hyperkalemia (principal); I10 Essential (primary) hypertension; E11.9 Type 2 diabetes mellitus without complications; E78.5 Hyperlipidemia, unspecified; Z87.19 Personal history of other diseases of the digestive system; R94.31 Abnormal electrocardiogram [ECG] [EKG]
CPT/HCPCS: 36415; 80048; 93005

== ENCOUNTER → 2023-04-26 | Outpatient (CLI) | payer MEDICARE | LOC: CT 10:38 | PROVIDERS: ATTEND Nurse Practitioner Adult Health | DX: R51.9 Headache, unspecified (principal); Z87.828 Personal history of other (healed) physical injury and trauma | CPT/HCPCS: 70450 ==